=== PATIENT | female | born 1950 | race Caucasian/White ===

== ENCOUNTER → 2017-03-02 | Outpatient (CLI) | payer MEDICARE, OTHER ==
[~2017-03-02] MED LIST: COUMADIN5 MG PO; DOXYCYCLINE HY100 M3 PO; ESTRADIOL1 MG PO; HCTZ PO; IMIPRAMINE HCL50 MG PO; IMIPRAMINE PAM150 MG PO; KLOR-CON PO; LORAZEPAM0.5 MG PO; LORTAB 7.5-3251 EACH PO; LORTAB 7.51 TAB PO; PREMARIN0.625 MG PO; TENORMIN50 MG PO
[2017-03-02 10:59] LABS: INR 1.5; PROTHROMBIN TIME (PATIENT) 16.1 SECONDS (9.6-11.5)
== END | disposition home or self-care (01) ==
LOC: CLAB 10:12
PROVIDERS: Family Medicine
DX: I82.509 Chronic embolism and thrombosis of unspecified deep veins of unspecified lower extremity (principal)
CPT/HCPCS: 36415; 85610

== ENCOUNTER → 2017-05-14 | Outpatient (CLI) | payer MEDICARE, OTHER ==
[2017-05-14 12:40] LABS: HEMATOCRIT 45.2 % (35.0-45.0); HEMOGLOBIN 15.1 gm/dL (12.0-16.0); MEAN CELL VOLUME 86.5 FL (83-96); MEAN CORPUSCULAR HEMOGLOBIN 28.9 PG (28-34); MEAN CORPUSCULAR HGB CONC 33.4 g/dL (30-36); RED BLOOD COUNT 5.22 X10e (3.90-5.30); RED CELL DISTRIBUTION WIDTH 14.4 % (11.0-15.5); WHITE BLOOD COUNT 7.2 X10e3 (4.0-10.5)
[2017-05-14 13:09] LABS: BUN/CREATININE RATIO 15.71; CALCIUM SERUM 9.2 mg/dL (8.4-10.2); CREATININE SERUM 0.7 mg/dL (0.6-1.4); GLOM FILT RATE Estimated 91.6 mL/min (>60); POTASSIUM 3.6 mmol/L (3.5-5.1)
== END | disposition home or self-care (01) ==
LOC: CAMB 10:41 → EDSTATUS 11:00
PROVIDERS: Surgery
DX: Z01.812 Encounter for preprocedural laboratory examination (principal); S31.139A Puncture wound of abdominal wall without foreign body, unspecified quadrant without penetration into peritoneal cavity, initial encounter
CPT/HCPCS: 36415; 80048; 85027

== ENCOUNTER 2017-05-19 05:34 | Inpatient (IN) | payer MEDICARE, OTHER ==
[~2017-05-19] VITALS: Ht 167.6 cm; Wt 116.9 kg
--- NOTE | ~2017-05-19 | OR ---
Unit #: [id number] #: [id number] Patient: SHANT DAVID [id number] [facility]. [address] [address] [id number] MR#: [id number] NAME: SHANT DAVID ROOM: 464 Date of Procedure: 05/19/2017 Admission Date: 05/19/2017 Surgeon: Juventino Shields Jr., M.D. : 1950 Attending Physician: Juventino Shields Jr., M.D. Primary Care Physician: Lisette Page M.D. OPERATIVE REPORT INDICATION FOR PROCEDURE The patient is a 66-year-old obese white female, who recently had a ventral hernia repair on her right lower quadrant abdominal wall region. Since then, she has had intermittent sinuses draining from the wound indicating possible wound infection versus mesh infection. She is brought in this time for exploration of the abdominal wall, possible removal of her mesh. She understands the procedure including the risks, including that of continued infection, intraabdominal organ injury, and recurrence of her hernia and consents. PREOPERATIVE DIAGNOSIS Possible infected mesh abdominal wall. POSTOPERATIVE DIAGNOSES Possible infected mesh abdominal wall, noting a pocket of pus. Approximately 40 to 50 mL cultures were sent. ANESTHESIA General with LMA. PROCEDURE PERFORMED Exploration of the right lower quadrant abdominal wall with removal of mesh and chronic infected tissue and suture material with cultures being sent. DESCRIPTION OF PROCEDURE The patient was positioned in supine position. After being anesthetized, she was prepped and draped in routine fashion for exploration through the abdominal wall. Hemostat was placed in the sinus. It was in the lower abdominal wall area and it tracked down inferior and was opened approximately 2 inches and there was obvious large abscess underneath the area of the sinus. The wound was then opened even further approximately 5 to 6 inches and there was a large pocket of pus. At least 50 to 60 mL of cultures for aerobic and anaerobic organisms were sent. The mesh was at the base of this infection. It was felt the mesh should be removed using a #10 blade scalpel. Sharp excisional debridement was performed along with removal of the mesh. After it was completely removed, it was sent to pathology. Hemostasis was achieved with Bovie cautery and several small vessels were controlled with a [id number] 3-0 Vicryl sutures. The wound was irrigated and after again hemostasis achieved with Bovie cautery, it was packed with saline moist dry dressings. Sterile dressings were applied externally. Estimated blood loss less than 100 mL. The Unit #: [id number] #: [id number] Patient: SHANT DAVID patient received less than 2000 mL crystalloid solution during the procedure. Sponges and instruments counts were correct x3. No drains used. No complications. The patient was taken to the recovery room with stable vital signs in satisfactory condition. Dictated by... Juventino Shields Jr., M.D. JMB/sina TD: 05/19/2017 13:02 JOB #: [id number] OPERATIVE REPORT Page 1 of 1 X Juventino Shields MD X PROCEDURE OPERATIVE NOTE
--- NOTE | ~2017-05-19 | DS ---
Unit #: [id number] #: [id number] Patient: SHANT DAVID [id number] [address] [place], [place] [address] [id number] MR#: [id number] NAME: SHANT DAVID ROOM: 223 Age: 66 Sex: F Admission Date: 05/19/2017 : 1950 Discharge Date: 05/26/2017 Attending Physician: Juventino Shields Jr., M.D. Primary Care Physician: Lisette Page M.D. DISCHARGE SUMMARY DISCHARGE DIAGNOSIS Infected mesh of abdominal wall. OPERATIVE PROCEDURE Exploration of abdominal wall with cultures and removal of infected mesh with drainage of abscess in graft area. DISCHARGE MEDICATIONS Home medications plus Lortab 7.5 one p.o. q.4 hours p.r.n. pain. HISTORY OF PRESENT ILLNESS AND HOSPITAL COURSE A 66-year-old white female who has infected mesh in place in the lower abdomen. She requests removal thereof. She has other medical issues. She was on blood thinners to include Coumadin; however, this was reversed. Patient was taken to surgery. The mesh was removed. She did have slight problems with bleeding postop. It has cleared up considerably over the course of 48 hours. Presently, the patient is on low-dose anticoagulation for her medical issues. She is to be discharged. She had Staphylococcus aureus germ. We are going to treat that with oral antibiotics, and she will come back and see us in the office for followup evaluation in approximately 7-10 days. She does have wound VAC in place and will be changed on Thursday, Thursday, and Thursday. Dictated by... Juancho Gonzalez/emily TD: 05/27/2017 11:06 JOB #: [id number] DISCHARGE SUMMARY Page 1 of 1 X Roberto Lopez MD X DISCHARGE SUMMARY
--- NOTE | ~2017-05-19 | BMI ---
[facility] Nutrition Therapy DATE: 05/20/17 Patient: SHANT DAVID Physician: EBONIE Address: [address] [place] [address] Room/Bed: [address] [place] [address], Zip: [place] [address] Admit Date: 05/19/17 Date of : 54 Height: 5 6 Weight: 257 116.9 HIGH BMI NOTE: ANTHROPOMETRICS: HT: 5'6" WT: 116.9 KG BMI: 41.6 DIET: REGULAR RECOMMENDATIONS: 1. ADD A HEART HEALTHY DIET RESTRICTION TO PROMOTE GRADUAL WEIGHT LOS TOWARDS A HEALTHY BMI. Respectfully, ZEINAB HOOKS RD, LD [employer] [facility] [employer] cc: client file
[~2017-05-19 05:34] MED LIST changes: -DOXYCYCLINE HY100 M3 PO; -LORTAB 7.5-3251 EACH PO
[2017-05-19 06:45] LABS: INR 1.1; PROTHROMBIN TIME (PATIENT) 11.9 SECONDS (10.0-11.7)
[2017-05-20 00:53] LABS: HEMATOCRIT 34.3 % (35.0-45.0); HEMOGLOBIN 11.4 gm/dL (12.0-16.0)
[2017-05-20 02:13] LABS: HEMOGLOBIN 11.3 gm/dL (12.0-16.0); MEAN CELL VOLUME 88.1 FL (83-96); MEAN CORPUSCULAR HEMOGLOBIN 29.2 PG (28-34); MEAN CORPUSCULAR HGB CONC 33.2 g/dL (30-36); RED BLOOD COUNT 3.86 X10e (3.90-5.30); RED CELL DISTRIBUTION WIDTH 14.6 % (11.0-15.5); WHITE BLOOD COUNT 8.9 X10e3 (4.0-10.5)
[2017-05-20 02:38] LABS: BUN/CREATININE RATIO 15.71; CALCIUM SERUM 7.9 mg/dL (8.4-10.2); CREATININE SERUM 0.7 mg/dL (0.6-1.4); GLOM FILT RATE Estimated 91.6 mL/min (>60); POTASSIUM 3.1 mmol/L (3.5-5.1)
[2017-05-21 02:32] LABS: HEMATOCRIT 35.8 % (35.0-45.0); HEMOGLOBIN 11.9 gm/dL (12.0-16.0); MEAN CELL VOLUME 87.4 FL (83-96); MEAN CORPUSCULAR HGB CONC 33.1 g/dL (30-36); MEAN PLATELET VOLUME 7.9 FL (6.5-11.5); RED BLOOD COUNT 4.09 X10e (3.90-5.30); RED CELL DISTRIBUTION WIDTH 14.1 % (11.0-15.5); WHITE BLOOD COUNT 7.9 X10e3 (4.0-10.5)
[2017-05-22 03:16] LABS: INR 1.1; PROTHROMBIN TIME (PATIENT) 11.8 SECONDS (10.0-11.7)
[2017-05-22 03:22] LABS: CALCIUM SERUM 8.3 mg/dL (8.4-10.2); CREATININE SERUM 0.5 mg/dL (0.6-1.4); GLOM FILT RATE Estimated 102.3 mL/min (>60)
[2017-05-22 16:01] LABS: MAGNESIUM 1.8 mg/dL (1.6-3.0)
[2017-05-22 16:03] LABS: POTASSIUM 2.9 mmol/L (3.5-5.1)
[2017-05-23 00:54] LABS: INR 1.1; PROTHROMBIN TIME (PATIENT) 11.7 SECONDS (10.0-11.7)
[2017-05-23 03:53] LABS: POTASSIUM 3.5 mmol/L (3.5-5.1)
[2017-05-24 04:05] LABS: INR 1.6; PROTHROMBIN TIME (PATIENT) 17.3 SECONDS (10.0-11.7)
[2017-05-24 04:14] LABS: CALCIUM SERUM 7.8 mg/dL (8.4-10.2); CREATININE SERUM 0.5 mg/dL (0.6-1.4); GLOM FILT RATE Estimated 102.3 mL/min (>60); MAGNESIUM 1.9 mg/dL (1.6-3.0); POTASSIUM 3.5 mmol/L (3.5-5.1)
[2017-05-25 06:34] LABS: POTASSIUM 3.8 mmol/L (3.5-5.1)
[2017-05-26 05:29] LABS: BASOPHIL% 0.5 % (0-2.5); EOSINOPHIL# 0.4 X10e3 (0-0.7); EOSINOPHIL% 6.1 % (0.0-7.0); HEMATOCRIT 32.2 % (35.0-45.0); HEMOGLOBIN 10.6 gm/dL (12.0-16.0); LYMPHOCYTE# 1.6 X10e3 (1.0-3.5); LYMPHOCYTE% 23.9 % (17.0-45.0); MEAN CELL VOLUME 87.4 FL (83-96); MEAN CORPUSCULAR HEMOGLOBIN 28.8 PG (28-34); MEAN PLATELET VOLUME 7.8 FL (6.5-11.5); MONOCYTE# 0.6 X10e3 (0-1.0); MONOCYTE% 9.3 % (3.0-12.0); NEUTROPHIL# 4.1 X10e3 (1.5-7.1); NEUTROPHIL% 60.2 % (40-75); PLATELET COUNT 266 X10e3 (140-420); RED BLOOD COUNT 3.69 X10e (3.90-5.30); RED CELL DISTRIBUTION WIDTH 14.2 % (11.0-15.5); WHITE BLOOD COUNT 6.8 X10e3 (4.0-10.5)
[2017-05-26 05:51] LABS: DIFF IND NO
[2017-05-26 06:00] LABS: MAGNESIUM 1.9 mg/dL (1.6-3.0); POTASSIUM 3.4 mmol/L (3.5-5.1)
[2017-05-26] MEDS ORDERED: DOXYCYCLINE HY100 M3 PO (11:11)
[2017-05-26] MEDS ORDERED: LORTAB 7.5-3251 EACH PO (11:12)
== END 2017-05-26 17:41 | disposition home health service (06) | DRG 908 ==
LOC: CSUR 05:34 → CPACUOF 09:21 → C4C 09:21 → CPACUOF 09:25 → C4C 09:25 → CSUR 09:25 → C4C 09:25 → CPACUOF 13:23 → C4C 13:23 → CPACUOF 05-20 15:06 → C4C 05-20 15:06 → C2A 05-25 18:06
PROVIDERS: Surgery
PROC: 0WPF0JZ Removal of Synthetic Substitute from Abdominal Wall, Open Approach (ICD-10-PCS; principal; 2017-05-19 07:30)
PROC: 2W13X6Z Compression of Abdominal Wall using Pressure Dressing (ICD-10-PCS; 2017-05-26)
DX: T85.79XA Infection and inflammatory reaction due to other internal prosthetic devices, implants and grafts, initial encounter (principal); L02.211 Cutaneous abscess of abdominal wall; Z68.41 Body mass index [BMI] 40.0-44.9, adult; F41.9 Anxiety disorder, unspecified; M19.90 Unspecified osteoarthritis, unspecified site; I10 Essential (primary) hypertension; E66.01 Morbid (severe) obesity due to excess calories
CPT/HCPCS: 80048; 80202; 83735; 84132; 85014; 85018; 85025; 85027; 85610; 87070; 87075; 87077; 87186; 87205; 88304; 94010; C9113; J1650; J2250; J2270; J2405; J2550; J3010; J3370; J3475